=== PATIENT | male | born 1950 | race Caucasian/White ===

== ENCOUNTER 2017-05-11 23:40 | Emergency (ER) | payer OTHER ==
[~2017-05-11] VITALS: Ht 180.3 cm; Wt 86.2 kg
[2017-05-12] MEDS ORDERED: ONDANSETRON ODT 4 MG TAB.RAPDIS SL ONE (00:30)
[2017-05-12] MEDS ORDERED: HYDROCODONE/APAP 5-325MG TABLET PO ONE (00:30)
--- NOTE | 2017-05-12 00:34 | NUR ---
pt see by Dr. Gant. Pt medicated for dscomfort. Pt stable for discharge per MD. Pt given ACI. Pt verbalized understanding of dc instructions. Pt ambulated outo f er with steady gait and ride home
[2017-05-12 00:35] VITALS: BP 162/69
[2017-05-12] MEDS ORDERED: ONDANSETRON ODT 4 MG TAB.RAPDIS ONE (00:43)
[2017-05-12] MEDS ORDERED: HYDROCODONE/APAP 5-325MG TABLET ONE (00:44)
== END 2017-05-12 00:38 | disposition home or self-care (01) ==
LOC: ER 23:45
DX: G89.18 Other acute postprocedural pain (principal); R04.0 Epistaxis; I10 Essential (primary) hypertension; E78.00 Pure hypercholesterolemia, unspecified
CPT/HCPCS: A4663; Q0162